=== PATIENT | female | born 1985 | race Caucasian/White ===

== ENCOUNTER 2017-11-10 14:47 | Emergency (ER) | payer OTHER ==
[~2017-11-10] VITALS: Ht 160 cm; Wt 61.6 kg
[~2017-11-10 14:47] MED LIST: CYCL-36 PO; MELO15TA2 PO; SULF1TAB47 PO; Z.0.NO CURRENT MEDS
[2017-11-10 14:58] VITALS: BP 139/65; PULSE 83; RESP 16; TEMP 98.1; O2SAT 99
--- NOTE | 2017-11-10 15:35 | RADRPT ---
EXAM DATE/TIME: 11/10/2017 15:14 [place] COMPARISON: No previous studies available for comparison. INDICATIONS : Right lateral foot pain post fall. MEDICAL HISTORY : None. SURGICAL HISTORY : None. ENCOUNTER: Initial ACUITY: 2 days PAIN SCORE: 9/10 LOCATION: Right foot FINDINGS: Three view examination of the right foot demonstrates no soft tissue swelling, dislocation, or fractu re. The tarsal bones appear intact. The interphalangeal and metatarsophalangeal joints are intact. The calcaneus is intact. Bony mineralization is normal. CONCLUSION: No acute fracture or joint dislocation. James Arroyo MD on November 10, 2017 at 15:31 Board Certified Radiologist. This report was verified electronically.
[2017-11-10] MEDS ORDERED: Subutex PO (15:50)
--- NOTE | 2017-11-10 15:57 | PD ---
HPI Chief Complaint: Musculoskeletal Complaint Time Seen by Provider: 15:41 Travel History International Travel<30 days: No Contact w/Intl Traveler<30days: No Traveled to known affect area: No History of Present Illness HPI This is a 32-year-old female here with right mid foot pain after twisting injury today. Patient reports pain with weightbearing and range of motion. Denies paresthesia or weakness of the extremity. Severity is moderate. Slightly relieved with rest. PFSH Past Medical History Medical History: Denies Significant Hx Cardiovascular Problems: No Diminished Hearing: No Gastrointestinal Disorders: No Genitourinary: Yes Headaches: Yes Kidney Stones: Yes Musculoskeletal: Yes Neurologic: Yes Reproductive: No Respiratory: No Immunizations Current: Yes ?: Not LMP: JUST ENDED : 1 Para: 1 Past Surgical History Abdominal Surgery: Yes (APPENDECTOMY 05/07/10) Appendectomy: Yes Section: Yes Gynecologic Surgery: Yes () Social History Alcohol Use: No Tobacco Use: No (10/17 PPD) Substance Use: No Allergies-Medications (Allergen,Severity, Reaction): Coded Allergies: No Known Allergies (Verified Adverse Reaction, Unknown, 11/10/17) Reported Meds & Prescriptions Reported Meds & Active Scripts Active Reported [Subutex] 1 Tab PO DAILY Review of Systems Except as stated in HPI: all other systems reviewed are Neg Physical Exam Narrative GENERAL: Alert well-appearing 32-year-old female. SKIN: Warm and dry. HEAD: Normocephalic. Atraumatic EYES: No injection or drainage. NECK: Supple, trachea midline. MUSCULOSKELETAL: No cyanosis, or edema. Right lower extremity: No swelling or tenderness of the ankle. Reported tenderness over the dorsal aspect of the foot. No swelling or ecchymosis. 2+ dorsal pedis pulse. Normal sensation.. Brisk cap refill. Data Data Last Documented VS Vital Signs Date Time Temp Pulse Resp B/P (MAP) Pulse Ox O2 Delivery O2 Flow Rate FiO2 11/10/17 14:58 98.1 83 16 139/65 (89) 99 Orders Orders Foot, Complete ([id number]) (11/10/17 ) [facility] Medical Decision Making Medical Screen Exam Complete: Yes Emergency Medical Condition: Yes Differential Diagnosis Midfoot sprain, fracture, contusion Narrative Course 32-year-old female here with right foot pain after twisting injury today. Extremities neurovascular intact. X-ray negative for fracture. Strep applied. Crutches offered. Instructed to ice and elevate the extremity. Diagnosis Primary Impression: Foot sprain Qualified Codes: S93.601A - Unspecified sprain of right foot, initial encounter Referrals: Primary Care Physician Departure Forms: Tests/Procedures, Work Release Enter return to work date: Nov 12, 2017 Additional Instructions: Take [id number] ibuprofen as needed for pain. Ice and elevate the extremity Follow-up with her primary doctor. Disposition: 01 DISCHARGE HOME Condition: Stable Flakita Nelson Nov 10, 2017 15:57
== END 2017-11-10 16:43 | disposition home or self-care (01) ==
LOC: PHED 14:47 → PHEFT 16:43
DX: S93.601A Unspecified sprain of right foot, initial encounter (principal); F17.210 Nicotine dependence, cigarettes, uncomplicated; X50.1XXA Overexertion from prolonged static or awkward postures, initial encounter; Z87.442 Personal history of urinary calculi
CPT/HCPCS: 73630; 99283